=== PATIENT | male | born 1955 | race Asian ===

== ENCOUNTER 2016-07-21 08:16 | Emergency (ER) | payer MEDICAID, OTHER ==
--- NOTE | 2016-07-21 08:27 | EDPHY ---
H & P Time Seen by Provider: 07/21/16 08:26 HPI/ROS: CHIEF COMPLAINT: Fatigue and tired HISTORY OF PRESENT ILLNESS: Patient is a history of coronary disease with bypass grafting hyperlipidemia. He was a [facility] patient until just recently and now has Medicare. He presents today with 10 days of feeling fatigued and very tired. Associated with a cough and some white sputum but no chest pain or shortness of breath. He does have fever and chills and diffuse myalgias. Not better worse with time of day. Associated with decreased appetite losing about 5-6 lb over the last week and half. No diarrhea or vomiting. REVIEW OF SYSTEMS: Eye: no change in vision ENT: no sore throat Cardiac: no chest pain or syncope Pulmonary: HPI on Abdomen: HPI, no abdominal pain Musculoskeletal: no back pain Skin: no rash Neuro: no headache Constitutional: HPI : Some darker urine and a little bit of difficulty urinating. A comprehensive 10 point review of systems is otherwise negative aside from elements mentioned in the history of present illness. PAST MEDICAL HISTORY: CT on 07/28/2014 showing left pleural thickening, history of bypass surgery, no history of tuberculosis. Social history: Nonsmoker General Appearance: Alert and conversant, cooperative. Eyes: No scleral icterus. ENT, Mouth: Normal mucous membranes. Respiratory: Normal respiratory effort, breath sounds equal, lungs are clear to auscultation. Cardiovascular: Regular rate and rhythm. Gastrointestinal: Abdomen is soft and non tender. Neurological: Alert and oriented x3. Normally conversant. Face symmetric, normal movement and sensation in all extremities. Skin: Warm and dry, no rashes. Well-healed midline sternotomy scar. Musculoskeletal: No peripheral edema and no joint swelling. Psychiatric: Not agitated. Emergency Department course/MDM: Chest x-ray, EKG, labs to include CBC chemistry and troponin. Urinalysis. 940: X-ray report by Dr. Benjamin reviewed. Most likely right-sided pneumonia , given full clinical picture. Good candidate for outpatient treatment with normal white blood cell count, afebrile, normal oxygen saturation. CURB-65 is 0. Ceftriaxone and azithromycin. Results discussed with the patient at this time, case management to assist with outpatient follow-up. Constitutional: Initial Vital Signs Temperature (C) 37.1 C 07/21/16 08:29 Heart Rate 74 07/21/16 08:29 Respiratory Rate 18 07/21/16 08:29 Blood Pressure 110/79 07/21/16 08:29 O2 Sat (%) 95 07/21/16 08:29 O2 Delivery Mode Room Air Allergies/Adverse Reactions: No Known Allergies Allergy (Unverified 07/21/16 08:28) Home Medications: Medication Instructions Recorded AZITHROMYCIN [Z-PACK] 250 mg PO DAILY #6 tab 07/21/16 Aspirin EC 07/21/16 Atorvastatin Calcium 07/21/16 Medical Decision Making - Diagnostics EKG Interpretation: 12-lead EKG interpreted by me; official reading is in trace master. My interpretation is sinus rhythm rate 65 without ischemic changes. Imaging Results: Imaging Impressions Chest X-Ray 07/21/16 08:38 Impression: 1. Status post prior remote CABG, with no evidence of congestive heart failure. 2. Mild right-sided infiltrates. Clinical correlation and follow-up to assure resolution are recommended. Chest x-ray personally interpreted shows right lower lung infiltrate. Imaging: I viewed and interpreted images myself Differential Diagnosis: Differential for fatigue considered including but not limited to infectious such as pneumonia or UTI, anemia, coronary disease, other metabolic or renal failure - Data Points Laboratory Results: Laboratory Results 07/21/16 08:48 07/21/16 08:48 07/21/16 07/21/16 07/21/16 09:00 08:48 08:48 WBC 7.78 10^3/uL 10^3/uL (3.80-9.50) RBC 4.94 10^6/uL 10^6/uL (4.40-6.38) Hgb 14.5 g/dL g/dL (13.7-17.5) Hct 42.7 % % (40.0-51.0) MCV 86.4 fL fL (81.5-99.8) MCH 29.4 pg pg (27.9-34.1) MCHC 34.0 g/dL g/dL (32.4-36.7) RDW 12.8 % % (11.5-15.2) Plt Count 243 10^3/uL 10^3/uL (150-400) MPV 9.3 fL fL (8.7-11.7) Neut % (Auto) 61.2 % % (39.3-74.2) Lymph % (Auto) 24.4 % % (15.0-45.0) [place] % (Auto) 9.8 % % (4.5-13.0) Eos % (Auto) 3.9 % % (0.6-7.6) Baso % (Auto) 0.3 % % (0.3-1.7) Nucleat RBC Rel Count 0.0 % % (0.0-0.2) Absolute Neuts (auto) 4.77 10^3/uL 10^3/uL (1.70-6.50) Absolute Lymphs (auto) 1.90 10^3/uL 10^3/uL (1.00-3.00) Absolute Monos (auto) 0.76 10^3/uL 10^3/uL (0.30-0.80) Absolute Eos (auto) 0.30 10^3/uL 10^3/uL (0.03-0.40) Absolute Basos (auto) 0.02 10^3/uL 10^3/uL (0.02-0.10) Absolute Nucleated RBC 0.00 10^3/uL 10^3/uL (0-0.01) Immature Gran % 0.4 % % (0.0-1.1) Immature Gran # 0.03 10^3/uL 10^3/uL (0.00-0.10) Sodium 144 mEq/L mEq/L (134-144) Potassium 3.3 mEq/L L mEq/L (3.5-5.2) Chloride 106 mEq/L mEq/L (97-110) Carbon Dioxide 24 mEq/l mEq/l (22-31) Anion Gap 14 mEq/L mEq/L (8-16) BUN 12 mg/dL mg/dL (7-23) Creatinine 0.8 mg/dL mg/dL (0.7-1.3) Estimated GFR > 60 Glucose 156 mg/dL H mg/dL (70-100) Calcium 8.2 mg/dL L mg/dL (8.5-10.4) Troponin I < 0.012 ng/mL ng/mL (0-0.034) Urine Color YELLOW Urine Appearance CLEAR Urine pH 6.0 (5.0-7.5) Ur Specific [place] 1.015 (1.002-1.030) Urine Protein NEGATIVE (NEGATIVE) Urine Ketones NEGATIVE (NEGATIVE) Urine Blood NEGATIVE (NEGATIVE) Urine Nitrate NEGATIVE (NEGATIVE) Urine Bilirubin NEGATIVE (NEGATIVE) Urine Urobilinogen 0.2 EU EU (0.2-1.0) Ur Leukocyte Esterase NEGATIVE (NEGATIVE) Urine Glucose NEGATIVE (NEGATIVE) Medications Given: Discontinued Medications Sodium Chloride (Ns) 1,000 mls @ 0 mls/hr IV ONCE ONE; Wide Open PRN Reason: Protocol Stop: 07/21/16 09:07 Last Admin: 07/21/16 09:07 Dose: 1,000 mls Ceftriaxone Sodium 1 gm/ (Sodium Chloride) 100 mls @ 200 mls/hr IV EDNOW ONE PRN Reason: Protocol Stop: 07/21/16 10:12 Last Admin: 07/21/16 10:13 Dose: 100 mls Departure - Departure Disposition: Home, Routine, Self-Care Clinical Impression: Pneumonia Qualifiers: Pneumonia type: due to unspecified organism Laterality: right Lung location: unspecified part of lung Qualified Code(s): J18.9 - Pneumonia, unspecified organism Condition: Good Instructions: Pneumonia (ED) Additional Instructions: Our home health care case manager has scheduled you a follow-up appt at [facility] on Sunday07/24/16 at 11a.m. Please arrive at 10:30a.m. to complete new patient paperwork. Your appointment will be in their "Green Pod" area of the clinic and you will be seen by provider Jennifer Marcum. [address] [phone] Referrals: Dejuan Jimenez DO [Doctor of Osteopathy] - As per Instructions [facility],. [Clinic] - As per Instructions Prescriptions: AZITHROMYCIN [Z-PACK] 250 mg PO DAILY #6 tab
[2016-07-21 08:51] LABS: % IMMATURE GRANULYOCYTES 0.4 % (0.0-1.1); ABSOLUTE IMMATURE GRANULOCYTES 0.03 10^3/uL (0.00-0.10); ADD DIFF? NO; ADD MORPH? NO; ADD SCAN? NO; ATYPICAL LYMPHOCYTE FLAG 40 (0-99); FRAGMENT RBC FLAG 0 (0-99); HEMATOCRIT 42.7 % (40.0-51.0); HEMOGLOBIN 14.5 g/dL (13.7-17.5); LEFT SHIFT FLG 0 (0-99); LIPEMIA HEMOLYSIS FLAG 90 (0-99); MEAN CELL HEMOGLOBIN 29.4 pg (27.9-34.1); MEAN CELL VOLUME 86.4 fL (81.5-99.8); MEAN PLATELET VOLUME 9.3 fL (8.7-11.7); PLATELET CLUMPS FLAG 0 (0-99); PLATELET COUNT 243 10^3/uL (150-400); RED BLOOD CELL COUNT 4.94 10^6/uL (4.40-6.38); RED CELL DISTRIBUTION WIDTH 12.8 % (11.5-15.2)
--- NOTE | 2016-07-21 08:55 | CPEKG ---
Heart Rate: 65 RR Interval: 923 P-R Interval: 176 QRSD Interval: 92 QT Interval: 404 QTC Interval: 421 P [place]: 62 QRS [place]: 56 T Wave [place]: 19 EKG Severity - NORMAL ECG - EKG Impression: SINUS RHYTHM Electronically Signed By: Enzo Ricci 21-Jul-2016 08:57:15
[2016-07-21 09:05] LABS: COLOR YELLOW; LEUKOCYTE ESTERASE,URINE NEGATIVE (NEGATIVE); NITRITE,URINE NEGATIVE (NEGATIVE)
[2016-07-21] MEDS ORDERED: NS 1,000 ML IV ONE (09:06)
[2016-07-21 09:09] LABS: ANION GAP 14 mEq/L (8-16); CALCIUM 8.2 mg/dL (8.5-10.4); CARBON DIOXIDE 24 mEq/l (22-31); CHLORIDE 106 mEq/L (97-110); CREATININE 0.8 mg/dL (0.7-1.3); GLOMERULAR FILTRATION RATE > 60; GLUCOSE 156 mg/dL (70-100); POTASSIUM 3.3 mEq/L (3.5-5.2); SODIUM 144 mEq/L (134-144)
[2016-07-21 09:24] LABS: TROPONIN I < 0.012 ng/mL (0-0.034)
[2016-07-21 11:16] VITALS: BP 108/64; PULSE 72; RESP 18; TEMP 99; O2SAT 97
== END 2016-07-21 10:55 | disposition home or self-care (01) ==
LOC: CED 08:16
DX: J18.9 Pneumonia, unspecified organism (principal); Z79.82 Long term (current) use of aspirin
CPT/HCPCS: 71020-PO; 80048-PO; 81003-PO; 84484-PO; 85025-PO; 96365; J0696